=== PATIENT | female | born 1970 | race American Indian/Alaskan Native ===

== ENCOUNTER 2019-04-22 12:12 | Emergency (ER) | payer OTHER ==
--- NOTE | 2019-04-22 12:25 | Event Note ---
ED Screening Note Date of service: 04/22/19 Time: 12:19 ED Screening Note: Patient here c/o of mid chest pain started this morning. Pain is getting worst. [facility] [place] [facility] to [place] and to [place]. Pain is radiating throughout all chest. h/p htn on norvasc. Reports SOB and pain with breathing in. Denies fever/chills, nausea,couh or sore throat. Pain is 7/10/ EXAM: A&O x3, Holding chest+ Lungs:CTAB EXT: OCCE +2Pulses This initial assessment/diagnostic orders/clinical plan/treatment(s) is/are subject to change based on patients health status, clinical progression and re- assessment by fellow clinical providers in the ED. Further treatment and workup at subsequent clinical providers discretion. Patient/guardian urged not to elope from the ED as their condition may be serious if not clinically assessed and managed. Initial orders include: labs,xray,o2,asa, ekg,int ua hcg. Charge Nurse notified that patient heeeds room in main ED. Given ASA and O2
[2019-04-22] MEDS ORDERED: ASPIRIN 325 MG TAB PO ONE (12:26)
[2019-04-22 13:08] LABS: Hematocrit 42.2 % (30.3-42.9); Hemoglobin 13.7 gm/dl (10.1-14.3); Mean Corpuscular HGB Conc 33 % (30-34); Mean Corpuscular Volume 83 fl (79-97); Platelet Count 217 K/mm3 (140-440); Red Blood Count 5.09 M/mm3 (3.65-5.03); Red Cell Distribution Width 14.4 % (13.2-15.2)
[2019-04-22 13:16] LABS: Partial Thromboplastin Time 33.2 Sec. (24.2-36.6)
[2019-04-22 13:26] LABS: Alanine Aminotransferase 15 units/L (7-56); BUN/Creatinine Ratio 17; Blood Urea Nitrogen 10 mg/dL (7-17); Calcium 8.9 mg/dL (8.4-10.2); Hemolysis Index 12
[2019-04-22 13:47] LABS: Anisocytosis Few; Band Neutrophils # (Manual) 0.1 K/mm3; Basophils % (Manual) 0 % (0.0-1.8); Total Cells Counted 100
--- NOTE | 2019-04-22 13:59 | XRay Report ---
CHEST 2 VIEWS INDICATION / CLINICAL INFORMATION: Chest Pain. COMPARISON: None available. FINDINGS: SUPPORT DEVICES: None. HEART / MEDIASTINUM: No significant abnormality. LUNGS / PLEURA: No significant pulmonary or pleural abnormality. No pneumothorax. ADDITIONAL FINDINGS: No significant additional findings. IMPRESSION: 1. No acute findings. Signer Name: Usha Bhakta MD Signed: 04/22/2019 1:55 PM Workstation Name: [id number]
[2019-04-22 14:17] LABS: Bilirubin,Urine NEG (Negative); Blood,Urine NEG (Negative); Color,Urine Yellow (Yellow); Mucus,Urine FEW /HPF; Protein,Urine <15 mg/dL mg/dL (Negative); Urobilinogen,Urine < 2.0 mg/dL (<2.0); WBC,Urine < 1.0 /HPF (0.0-6.0)
[2019-04-22] MEDS ORDERED: ONDANSETRON 4 MG/2 ML INJ IV ONE (14:44)
[2019-04-22] MEDS ORDERED: MORPHINE 4 MG/1 ML INJ IV ONE (14:44)
--- NOTE | 2019-04-22 14:48 | Emergency Department Report ---
ED Chest Pain HPI - General Chief Complaint: Chest Pain Stated Complaint: CHEST PAIN Time Seen by Provider: 04/22/19 12:19 Source: patient Mode of arrival: Wheelchair Limitations: No Limitations - History of Present Illness Initial Comments: Patient is 48 years old female with no significant past medical history except for hypertension. Patient presented to the ER complaining of substernal chest pain, sharp with radiation to the back. Patient stated that pain started all of a sudden when she woke up this morning. Patient stated that pain associated with shortness of breath. Patient denied any fever or chills. MD Complaint: chest pain -: This morning Onset: during rest Pain Location: left chest Pain Radiation: back Quality: sharp - Related Data Home Medications Medication Instructions Recorded Confirmed Last Taken amLODIPine 10 mg PO DAILY 04/22/19 04/22/19 Unknown Allergies Allergy/AdvReac Type Severity Reaction Status Date / Time No Known Allergies Allergy Unverified 04/22/19 12:13 Heart Score - HEART Score History: Slightly suspicious EKG: Non-specific Age: 45-65 Risk factors: 1-2 risk factors Troponin: < normal limit HEART Score: 3 - Critical Actions Critical Actions: 0-3 pts:0.9-1.7%risk of adverse cardiac event.Candidate for discharge ED Review of Systems ROS: Stated complaint: CHEST PAIN Other details as noted in HPI Comment: All other systems reviewed and negative Constitutional: denies: chills, fever Respiratory: denies: cough Cardiovascular: chest pain. denies: palpitations, dyspnea on exertion Gastrointestinal: denies: abdominal pain, nausea, vomiting, diarrhea, constipation, hematemesis, melena, hematochezia Musculoskeletal: denies: back pain Neurological: denies: headache, weakness ED Past Medical Hx - Past Medical History Hx Hypertension: Yes - Surgical History Past Surgical History?: No - Social History Smoking Status: Never Smoker Substance Use Type: None - Medications Home Medications: Home Medications Medication Instructions Recorded Confirmed Last Taken Type amLODIPine 10 mg PO DAILY 04/22/19 04/22/19 Unknown History ED Physical Exam - General Limitations: No Limitations General appearance: alert, in no apparent distress - Head Head exam: Present: atraumatic, normocephalic, normal inspection - Eye Eye exam: Present: normal appearance, PERRL - ENT ENT exam: Present: normal exam, normal orophraynx, mucous membranes moist - Neck Neck exam: Present: normal inspection, full ROM. Absent: tenderness, meningismus, lymphadenopathy, thyromegaly - Respiratory Respiratory exam: Present: normal lung sounds bilaterally - Cardiovascular Cardiovascular Exam: Present: regular rate, normal rhythm, normal heart sounds - GI/Abdominal GI/Abdominal exam: Present: soft, normal bowel sounds. Absent: distended, tenderness, guarding, rebound, rigid - Extremities Exam Extremities exam: Present: normal inspection, full ROM, normal capillary refill. Absent: tenderness, pedal edema, calf tenderness - Back Exam Back exam: Present: normal inspection, full ROM. Absent: CVA tenderness (R), CVA tenderness (L), muscle spasm, paraspinal tenderness, vertebral tenderness - Neurological Exam Neurological exam: Present: alert, oriented X3, CN II-XII intact, normal gait, reflexes normal - Psychiatric Psychiatric exam: Present: normal mood - Skin Skin exam: Present: warm, intact, normal color ED Course Vital Signs 04/22/19 04/22/19 12:17 15:14 Temperature 98.4 F Pulse Rate 65 57 L Respiratory 18 16 Rate Blood Pressure 133/79 Blood Pressure 126/56 [Left] O2 Sat by Pulse 98 100 Oximetry ED Medical Decision Making - Lab Data Result diagrams: 04/22/19 12:41 04/22/19 12:41 - EKG Data -: EKG Interpreted by Tx EKG shows normal: sinus rhythm Rate: bradycardia - EKG Data Interpretation: no acute changes - Radiology Data Radiology results: report reviewed - Medical Decision Making Patient is 48 years old female with no significant past medical history except for hypertension. Patient presented to the ER complaining of substernal chest pain, sharp with radiation to the back. Patient stated that pain started all of a sudden when she woke up this morning. Patient stated that pain associated with shortness of breath. Patient denied any fever or chills. EKG showed no ST elevation. Chest x-ray is unremarkable. 2 sets of troponin is negative. D-dimer slightly elevated and a CTA chest is negative for pulmonary embolism or any other pathology. Patient's symptoms completely resolved. Patient advised to follow-up with her primary care physician in the next 2-3 days for outpatient stress test and further workup. Patient also advised to return to the ER if symptoms are not improved. Critical care attestation.: If time is entered above; I have spent that time in minutes in the direct care of this critically ill patient, excluding procedure time. ED Disposition Clinical Impression: Chest pain Disposition: DC-01 TO HOME OR SELFCARE Is pt being admited?: No Condition: Stable Instructions: Chest Pain (ED) Referrals: PRIMARY CARE, [Referring] - 3-5 Days
[2019-04-22 15:12] LABS: INR 0.96 (0.87-1.13)
[2019-04-22 15:13] LABS: Partial Thromboplastin Time 32.9 Sec. (24.2-36.6)
[2019-04-22 15:15] VITALS: BP 126/56
--- NOTE | 2019-04-22 16:30 | Cat Scan Report ---
CTA CHEST WITH IV CONTRAST INDICATION / CLINICAL INFORMATION: CHEST PAIN WITH SYNCOPE. TECHNIQUE: Axial CT images were obtained through the chest after injection of 100 mL IV contrast. 3 plane MIP an d/or 3D reconstructions were produced. All CT scans at this location are performed using CT dose redu ction for [facility] by means of automated exposure control. COMPARISON: Chest radiograph earlier today. FINDINGS: PULMONARY ARTERIES: No pulmonary emboli. THORACIC AORTA: No significant abnormality. HEART: No significant abnormality. CORONARY ARTERIES: No significant calcification. PLEURA: No pleural effusion. No pneumothorax. LYMPH NODES: No significant adenopathy. LUNGS: Mild emphysematous changes noted throughout both lungs. No pulmonary mass or airspace opacity. ADDITIONAL FINDINGS: None. UPPER ABDOMEN: No acute findings. SKELETAL STRUCTURES: No significant osseous abnormality. IMPRESSION: 1. No CT evidence for pulmonary embolism. 2. No acute findings. 3. Mild COPD. Signer Name: Usha Bhakta MD Signed: 04/22/2019 4:26 PM Workstation Name: [id number]
== END 2019-04-22 18:06 | disposition home or self-care (01) ==
LOC: ED 12:12
DX: R07.89 Other chest pain (principal); I10 Essential (primary) hypertension
CPT/HCPCS: 36415; 71046; 71275; 80053; 81001; 83690; 84484; 84703; 85007; 85025; 85379; 85610; 85730; 86850; 86900; 86901; 93005; 93010; 96374; 96375; 99285; J2270; J2405; Q9967